=== PATIENT | female | born 1975 | race Caucasian/White ===

== ENCOUNTER 2019-08-20 03:27 | Inpatient (IN) ==
--- NOTE | 2019-08-14 16:28 | EKG Report ---
Test Performed on : 08/14/2019 4:17:29 PM Test Reason : PAT Blood Pressure : / mmHG Vent. Rate : 071 BPM Atrial Rate : 071 BPM P-R Int : 114 ms QRS Dur : 078 ms QT Int : 382 ms P-R-T Axes : 081 061 062 degrees QTc Int : 415 ms Normal sinus rhythm. with sinus arrhythmia. Normal ECG No previous ECGs available Unconfirmed Result
[2019-08-14 17:00] LABS: URINE SOURCE CLEAN CATCH
[2019-08-14 17:04] LABS: HEMATOCRIT 41.4 % (37.0-47.0); HEMOGLOBIN 13.6 g/dL (12.0-16.0); MCH 30.2 PG (27-31); MCHC 32.9 g/dL (33-37); MPV 8.8 FL (7.4-10.4); RBC 4.5 XMIL (4.2-5.4); WBC 7.09 X1000 (4.8-10.8)
[2019-08-14 17:15] LABS: BILIRUBIN URINE NEGATIVE (NEGATIVE); BLOOD URINE NEGATIVE (NEGATIVE); COLOR YELLOW; GLUCOSE URINE NEGATIVE (NEGATIVE); KETONE URINE NEGATIVE (NEGATIVE); LEUKOCYTES URINE NEGATIVE (NEGATIVE); NITRITE URINE NEGATIVE (NEGATIVE); PH URINE 6.5; PROTEIN URINE NEGATIVE (NEGATIVE); SP GRAVITY URINE 1.023; TURBIDITY URINE CLEAR (CLEAR); UR EPITHELIAL CELLS <10 /HPF (<10); URINE BACTERIA NEGATIVE /HPF; URINE RBC <10 /HPF (<10); URINE WBC <10 /HPF (<10); UROBILINOGEN URINE NORMAL (NORMAL)
[2019-08-20] MEDS ORDERED: NS 250 ML ONE (05:56)
[2019-08-20] MEDS ORDERED: NS 2,000 ML ONE (05:56)
[2019-08-20] MEDS ORDERED: EXPAREL 1.3% ONE (05:57)
[2019-08-20] MEDS ORDERED: BACITRACIN ONE (05:57)
[2019-08-20] MEDS ORDERED: FENTANYL ONE ×2 (06:22→08:10)
[2019-08-20] MEDS ORDERED: DIPRIVAN 1% ONE (06:22)
[2019-08-20] MEDS ORDERED: ZEMURON ONE ×3 (06:25→11:20)
[2019-08-20] MEDS ORDERED: ZOFRAN ONE (06:25)
[2019-08-20] MEDS ORDERED: QUELICIN (DOSE) ONE (06:25)
[2019-08-20] MEDS ORDERED: VERSED ONE (06:28)
[2019-08-20] MEDS ORDERED: LUBRIFRESH PM OPH OINTMENT ONE (06:31)
[2019-08-20] MEDS ORDERED: PEPCID ONE (06:34)
[2019-08-20] MEDS ORDERED: TRANSDERM-SCOP ONE (06:34)
[2019-08-20] MEDS ORDERED: REGLAN ONE (06:34)
[2019-08-20] MEDS ORDERED: VALIUM ONE (06:34)
[2019-08-20] MEDS ORDERED: LR 1,000 ML ONE (06:35)
[2019-08-20] MEDS ORDERED: KEFZOL 1 GM/D5W 2 GM/100 ML IVPB ONE (06:35)
[2019-08-20] MEDS ORDERED: LOVENOX ONE (06:35)
[2019-08-20] MEDS ORDERED: MORPHINE ONE (08:10)
[2019-08-20 08:32] LABS: URINE SOURCE CATH
[2019-08-20 08:35] LABS: BILIRUBIN URINE NEGATIVE (NEGATIVE); BLOOD URINE NEGATIVE (NEGATIVE); COLOR STRAW; GLUCOSE URINE NEGATIVE (NEGATIVE); KETONE URINE NEGATIVE (NEGATIVE); LEUKOCYTES URINE NEGATIVE (NEGATIVE); NITRITE URINE NEGATIVE (NEGATIVE); PH URINE 6.5; PROTEIN URINE NEGATIVE (NEGATIVE); SP GRAVITY URINE 1.005; TURBIDITY URINE CLEAR (CLEAR); UR EPITHELIAL CELLS <10 /HPF (<10); URINE BACTERIA NEGATIVE /HPF; URINE RBC <10 /HPF (<10); URINE WBC <10 /HPF (<10); UROBILINOGEN URINE NORMAL (NORMAL)
[2019-08-20] MEDS ORDERED: OFIRMEV 1000 MG/ISOTONIC SOLN 1,000 MG/100 ML BOTTLE ONE (09:42)
[2019-08-20] MEDS ORDERED: KEFZOL 1 GM/D5W 1 GM/50 ML IVPB ONE (11:20)
[2019-08-20] MEDS ORDERED: TORADOL ONE (14:10)
[2019-08-20] MEDS ORDERED: BRIDION ONE (14:16)
[2019-08-20] MEDS ORDERED: MORPHINE PCA ONE (15:37)
[2019-08-20] MEDS ORDERED: MORPHINE PCA IV PRN (16:15)
[2019-08-20] MEDS ORDERED: ZOFRAN IV PRN (16:15)
[2019-08-20] MEDS ORDERED: LR 1,000 ML IV SCH (16:15)
[2019-08-20] MEDS ORDERED: XANAX PO PRN (16:15)
[2019-08-20] MEDS ORDERED: SODIUM CHLORIDE 0.9% INJ PRN (16:15)
[2019-08-20] MEDS ORDERED: NARCAN IV PRN (16:15)
[2019-08-20] MEDS ORDERED: BENADRYL IV PRN (16:15)
[2019-08-20] MEDS ORDERED: PHENERGAN IV PRN (16:15)
[2019-08-20] MEDS: PERIDEX MT SCH (21:45)
[2019-08-20] MEDS: KEFZOL 1 GM/D5W 1 GM/50 ML IVPB IV SCH (21:53)
[2019-08-20] MEDS: LR 1,000 ML IV SCH ×2 (21:54→23:28)
--- NOTE | 2019-08-20 22:27 | OPERATIVE NOTE ---
PROCEDURE DATE: 08/20/2019 PROCEDURE: Bilateral breast reconstruction with tissue tong carrier. SURGEON: Dr. Jerry Ventura. ICD-10 DIAGNOSIS CODE FOR THIS CASE: Z85.3, personal history of breast cancer. CPT CODES: 32968, insertion of breast tissue tong carrier and 45810-52, insertion of breast tissue tong carrier on the other side. INDICATIONS FOR PROCEDURE: This patient is a 44-year-old white female who has biopsy-proven breast cancer in the right breast in 2 spots, 1 in the breast tissue and 1 in the lateral intra- breast lymph node. Because of this, she is going to have a modified radical mastectomy on the right side, which will be the total mastectomy plus a lymph node dissection and then a total mastectomy for prophylaxis on the left side to be done by Dr. Madrigal. When he has completed, she will have a bilateral breast reconstruction done with submuscular tissue expanders. She was seen in the office for informed consent on 08/14/2019. At that point, she understood that she would have a bilateral breast reconstruction after her mastectomies by Dr. Madrigal. She understands that this is the first stage of a planned 2-stage procedure. She understands there will be a period of time when she goes through the expansion process that she will not have optimal breast shape, but we will repair the breast shape as best we can when we get to the second stage. She understands exact bra cup size changes cannot be guaranteed. She knows the risks include infection, blood loss, blood clots in legs, heart problems, lung problems, allergic reactions, or blood and serum collections in the operative sites that might require drainage. She understands that while the tissue expanders are in place she cannot have an MRI scan because of the magnet in the port. She understands the exact size and shape cannot be guaranteed. She knows where her skin incision is going to be on her chest. She knows where the scars will end up. DESCRIPTION OF PROCEDURE: The patient was brought to the operating room after she was marked in outpatient surgery in the sitting position for the mastectomies. She went back to the operating room, was given general anesthesia and then was prepped and draped. The markings were reviewed with Dr. Madrigal, and then he proceeded to do the mastectomies. When he was completed, the reconstruction began. On both sides, submuscular pockets were created under the pectoralis major muscle and then the pectoralis minor muscle was split to elevate it laterally to get a total submuscular pocket. Hemostasis achieved with electrocautery. The pockets were irrigated with bacitracin solution. Then Exparel was injected in the muscle circumferentially and then in the skin circumferentially for postoperative pain control. The pockets were then irrigated with Betadine, and a 10 mm Mikey-Zamudio drain was placed in the pockets. It was decided to use 600 mL expanders on her which have a base diameter of 15 cm. These fit well. They were filled to just 100 mL of fluid to place them. They were held in place with 2 preplaced 2-0 Polysorb sutures to catch the suture tabs at 4 o'clock and 8 o'clock position to hold them in position. She also then had another suture of 3-0 Polysorb placed at the 10 o'clock position on the right side and the 2 o'clock position on the left side. The submuscular pocket was sewn down with 3-0 Polysorb interrupted sutures on a taper needle. Two small rents in the pectoralis fascia inferiorly, medially on the breasts were patched with little small patches of fat. On both sides, the skin flaps were irrigated with bacitracin solution, and hemostasis achieved with electrocautery. They were drained with 10 mm flat Mikey-Zamudio drains 2, and the axillary node dissection was also drained with a 10 mm flat Mikey-Zamudio drain. The skin was closed by redraping it with temporary silk stitches then 3-0 Polysorb sutures in the fat, running 3-0 Polysorb deep dermal suture, followed by running 4-0 Biosyn subcuticular stitch. The patient tolerated the procedure well. The type of expanders that were used in this patient were [employer] 133, smooth MV implants 600 mL in size, only filled to 100 in the operating room. The serial number for the right implant was [id number]. The serial number for the left implant was [id number]. She tolerated the procedure well and was transported to the recovery room in good condition. cc: MD Bryanna Michel MD
--- NOTE | 2019-08-21 04:47 | OPERATIVE NOTE ---
PROCEDURE DATE: 08/20/2019 PREOPERATIVE DIAGNOSIS: Right metastatic breast carcinoma, possible multifocal primary. POSTOPERATIVE DIAGNOSIS: Right metastatic breast carcinoma, possible multifocal primary. PROCEDURES PERFORMED: 1. Right modified radical mastectomy. 2. Left total mastectomy. SURGEON: Bryanna Madrigal MD. JOB PLACEMENT SPECIALIST: Jerry Ventura MD ESTIMATED BLOOD LOSS: 50 mL. ANESTHESIA: General. DRAINS: Per Dr. Ventura. INDICATION: This is a 44-year-old female who has possible multifocal disease of right breast, but biopsy confirmed right inferior outer quadrant. She also had adjacent adenopathy that was biopsied and confirmed metastatic carcinoma. FINDINGS: There is no pathologically enlarged nodes noted in the right axilla. OPERATIVE NOTE: Risks, benefits, and alternatives were discussed with the patient, she consented for the procedure. She has seen preoperatively. Her surgical sites were marked by Dr. Ventura and I agreed with these marking. She was taken to the operating room, placed supine position and general anesthesia was induced. Her bilateral chest, neck and axilla were prepped with Betadine and draped according Dr. Ventura's usual routine. He planned elliptical incisions around the breast. At this point, I started with the nononcologic side, made elliptical incision, carried this down through subcutaneous tissue and created subcutaneous flaps up to the clavipectoral fascia, inferiorly to the border of the rectus, medially to the lateral edge of the sternum, and laterally out to the latissimus, removing the breast and orienting it with marking stitches medially. We removed the pectoralis fascia of the breast off the breast wall. Hemostasis was noted. There were several vessels that were cauterized to obtain hemostasis. A moist lap was placed. We then turned our attention the right side, where a similar elliptical incision was made. We created our mastectomy flaps cephalad, medial, laterally and inferiorly using the same boundaries. The breast was removed and the specimen was oriented with short stitch marking medial and long stitch marking the axillary the tail of the breast. We then incised the axilla, carried our dissection out laterally, identifying the latissimus muscle and continued this up proximally until we identified the tendinous portion. The axillary vein was identified. We continued our dissection along this, identifying several vein branches. The thoracodorsal nerve was identified. The intercostal brachial nerve unfortunately was very stretched. We attempted to preserve this, but we felt that during the dissection and traction on this nerve that neuralgia was inevitable, as such, we ligated it with Vicryl suture to, hopefully, prevent postoperative neuralgic pain. The medial and pectoral nerve was identified and protected. We continued our dissection medially, removing all nodes from the retropectoral groove and completed our dissection, protecting the long thoracic, after clearly identifying it, and the thoracodorsal bundle. I noticed a couple small vein branches that were clipped. The lymph node packet was removed. There was no pathologically enlarged nodes at level 3, as such, we did not continue our dissection further. Moist lap was placed. Hemostasis was noted. At this point, Dr. Ventura took over the case. cc: Bryanna Madrigal MD
[2019-08-21] MEDS: KEFZOL 1 GM/D5W 1 GM/50 ML IVPB IV SCH ×2 (05:00→12:10)
[2019-08-21] MEDS: LR 1,000 ML IV SCH ×2 (05:45→12:10)
[2019-08-21] MEDS: PERIDEX MT SCH (08:14)
[2019-08-21] MEDS ORDERED: BENICAR PO SCH (09:00)
[2019-08-21 11:55] VITALS: BP 125/72
[2019-08-21] MEDS ORDERED: LOVENOX SUBQ ONE (12:56)
--- NOTE | 2019-08-21 18:38 | GENERAL SURGERY PROGRESS NOTE ---
DATE: 08/21/2019 SUBJECTIVE: Doing well, some pain, but she is sitting in the chair. No fevers. OBJECTIVE: Pulse 84, blood pressure 130/85. Her drain is serosanguineous. Her dressing is in place. ASSESSMENT AND PLAN: A 44-year-old female status post right modified radical mastectomy, left total mastectomy with tissue rug designer reconstruction by Dr. Ventura. She is doing well. We will defer disposition to Dr. Ventura. I will see her back within the week to discuss her final pathology and plans going forward. cc: Bryanan Madrigal MD
--- NOTE | 2019-08-22 11:39 | DISCHARGE SUMMARY ---
ADMISSION DATE: 08/20/2019 DISCHARGE DATE: 08/21/2019 ADMISSION DIAGNOSIS: Right breast cancer. DISCHARGE DIAGNOSIS: Right breast cancer. HOSPITAL COURSE: The patient was admitted to the hospital via outpatient surgery where preoperative haynes were made for bilateral mastectomies. These were to be done by Dr. Madrigal with lymph node dissection on the right side. She had uncomplicated bilateral mastectomies and reconstruction with bilateral submuscular tissue expanders. She has done well on the floor. She is eating, voiding, has no nausea. Pain control is adequate. Her operative sites look good. She has 3 drains on the right side and 2 drains on the left side. They understand how to take care of the drains. She will be discharged to home with incentive spirometry and drain management equipment. DISCHARGE MEDICATIONS: All of her prescriptions were already written for her during her preoperative visit which were Percocet 5/325 one tablet q.6 hours p.r.n. pain, Keflex 500 mg t.i.d., and Phenergan for nausea 25 mg p.o. q.6 hours. FOLLOWUP: I will see her in the office on Sunday for dressing change and drain management. cc: MD Bryanna Michel MD MTDD
== END 2019-08-21 14:28 | disposition home or self-care (01) | DRG 580 ==
LOC: SURHOLD 03:27 → 4N 08:05
PROVIDERS: ADMIT Surgery; ATTEND Surgery